=== PATIENT | male | born 1940 | race Caucasian/White ===

== ENCOUNTER 2018-04-25 11:27 | Emergency (ER) | payer OTHER ==
--- NOTE | 2018-04-25 12:01 | EDPHY ---
H & P Time Seen by Provider: 04/25/18 12:00 HPI/ROS: CHIEF COMPLAINT: Right hand numbness and weakness HISTORY OF PRESENT ILLNESS: Patient's symptoms started at 11:00 a.m.. 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 It lasted about 20 min. 1 away and then it came back although at the time of my evaluation the patient says his symptoms have completely resolved. Not associated with neck pain, or headache. He also had trouble using the button on the remote control. Associated with a little bit of dizziness and a feeling that he "just does not feel right." Not associated with double vision or speech difficulty or confusion or being off balance. REVIEW OF SYSTEMS: Eye: no change in vision ENT: History of having Lost hearing in his left ear, mostly resolved. Musculoskeletal: no back pain Skin: no rash Neuro: HPI, no headache Constitutional: no fever : no urinary symptoms A comprehensive 10 point review of systems is otherwise negative aside from elements mentioned in the history of present illness. PAST MEDICAL HISTORY: Includes inguinal and umbilical hernia repair. Negative for diabetes hypercholesterolemia or hypertension. Social history: Nonsmoker General Appearance: Alert and conversant, cooperative. Eyes: No scleral icterus. Pupils equal reactive extraocular motion intact. ENT, Mouth: Normal mucous membranes. Respiratory: Normal respiratory effort, breath sounds equal, lungs are clear to auscultation. Cardiovascular: Regular rate and rhythm. Normal right radial pulse. Gastrointestinal: Abdomen is soft and non tender. Neurological: Alert, face symmetric, normal motor and sensory in extremities. Specifically the patient has normal marketing mgr strength in the right hand, normal sensation in radial ulnar and median nerve distributions. Speech is fluent. Skin: Warm and dry, no rashes. Musculoskeletal: No peripheral edema. Psychiatric: Not agitated. Emergency Department course/MDM: Patient presents with symptoms consistent with TIA. Symptoms have completely resolved, he is in sinus rhythm. CT and CTA ordered. 1304: Some hand tingling symptoms have reoccurred, but no motor deficit or complaints of decreased strength at this time. Proceed with imaging. 1408: Results discussed with the patient, CT and CTA negative for abnormality or large vessel occlusion per Diandra. I recommended patient be admitted for TIA workup, he wants to be discharged as he feels normal now and has an event tonight that he feels like he needs to go to. He clearly has capacity to make decisions regarding his care. He is warned of the risks of leaving against my recommendation including but not limited to recurrent symptoms, stroke, disability, . He states that he understands these risks but still wants to leave and follow up as an outpatient. Warned to return immediately for recurrent symptoms. Smoking Status: Former smoker Constitutional: Initial Vital Signs Temperature (C) 36.6 C 04/25/18 11:32 Heart Rate 85 04/25/18 11:32 Respiratory Rate 16 04/25/18 11:32 Blood Pressure 168/94 H 04/25/18 11:32 O2 Sat (%) 94 04/25/18 11:32 O2 Delivery Mode Room Air Allergies/Adverse Reactions: No Allergies [NKDA] Allergy (Verified 04/25/18 11:32) Home Medications: Medication Instructions Recorded Multivitamin (*) 01/11/18 Medical Decision Making - Diagnostics EKG Interpretation: 12-lead EKG interpreted by me; official reading is in computer system. My interpretation is sinus rhythm with PVC and left axis. Imaging Results: Imaging Impressions Head CT 04/25/18 12:57 Impression: Negative. No acute intracranial hemorrhage or evidence of ischemia. Findings discussed with the emergency department physician, Leandro Vanegas MD on April 25, 2018 at 1:56 p.m. Head CTA 04/25/18 12:57 Impression: 1. Normal intracranial arterial circulation. No evidence of embolic disease or aneurysm. 2. Patent venous system. Findings discussed with the emergency department physician, Leandro Vanegas MD on April 25, 2018 at 2:03 p.m. Neck CTA 04/25/18 12:57 Impression: 1. Mild bilateral carotid plaque results in less than 20% narrowing bilaterally. No occlusion, dissection, or flow-limiting stenosis. 2. Widely patent vertebral arteries. Findings discussed with the emergency department physician, Leandro Vanegas MD on April 25, 2018 at 2:03 p.m. Measurement of carotid stenosis is based on the residual internal carotid diameter with [place] Symptomatic Carotid Endarterectomy Trial (NASCET) based stenosis levels. Imaging: Discussed imaging studies w/ scallop dredger Radiologist Differential Diagnosis: Differential considered including but not limited to intracranial mass, intracranial bleed, peripheral neuropathy, TIA, ischemic stroke, cervical radiculopathy. - Data Points Laboratory Results: Laboratory Results 04/25/18 11:50 04/25/18 11:50 04/25/18 04/25/18 04/25/18 12:21 11:50 11:50 WBC RBC Hgb POC Hgb 18.4 gm/dL H gm/dL (13.7-17.5) Hct POC Hct 54 % H % (40-51) MCV MCH MCHC RDW Plt Count MPV Neut % (Auto) Lymph % (Auto) Steele % (Auto) Eos % (Auto) Baso % (Auto) Nucleat RBC Rel Count Absolute Neuts (auto) Absolute Lymphs (auto) Absolute Monos (auto) Absolute Eos (auto) Absolute Basos (auto) Absolute Nucleated RBC Immature Gran % Immature Gran # PT 12.7 SEC SEC (12.0-15.0) INR 0.93 (0.83-1.16) POC Sodium 145 mEq/L mEq/L (135-145) Sodium 142 mEq/L mEq/L (135-145) POC Potassium 3.7 mEq/L mEq/L (3.3-5.0) Potassium 4.3 mEq/L mEq/L (3.3-5.0) POC Chloride 105 mEq/L mEq/L (97-110) Chloride 106 mEq/L mEq/L (97-110) Carbon Dioxide 26 mEq/l mEq/l (22-31) Anion Gap 10 mEq/L mEq/L (6-14) POC BUN 18 mg/dL mg/dL (7-23) BUN 18 mg/dL mg/dL (7-23) Creatinine 0.9 mg/dL mg/dL (0.7-1.3) POC Creatinine 0.8 mg/dL mg/dL (0.7-1.3) Estimated GFR > 60 Glucose 104 mg/dL H mg/dL (70-100) POC Glucose 106 mg/dL H mg/dL (70-100) Calcium 9.7 mg/dL mg/dL (8.5-10.4) 04/25/18 11:50 WBC 6.25 10^3/uL 10^3/uL (3.80-9.50) RBC 5.82 10^6/uL 10^6/uL (4.40-6.38) Hgb 18.2 g/dL H g/dL (13.7-17.5) POC Hgb Hct 52.2 % H % (40.0-51.0) POC Hct MCV 89.7 fL fL (81.5-99.8) MCH 31.3 pg pg (27.9-34.1) MCHC 34.9 g/dL g/dL (32.4-36.7) RDW 13.4 % % (11.5-15.2) Plt Count 211 10^3/uL 10^3/uL (150-400) MPV 11.0 fL fL (8.7-11.7) Neut % (Auto) 61.1 % % (39.3-74.2) Lymph % (Auto) 25.3 % % (15.0-45.0) Steele % (Auto) 9.6 % % (4.5-13.0) Eos % (Auto) 3.2 % % (0.6-7.6) Baso % (Auto) 0.6 % % (0.3-1.7) Nucleat RBC Rel Count 0.0 % % (0.0-0.2) Absolute Neuts (auto) 3.82 10^3/uL 10^3/uL (1.70-6.50) Absolute Lymphs (auto) 1.58 10^3/uL 10^3/uL (1.00-3.00) Absolute Monos (auto) 0.60 10^3/uL 10^3/uL (0.30-0.80) Absolute Eos (auto) 0.20 10^3/uL 10^3/uL (0.03-0.40) Absolute Basos (auto) 0.04 10^3/uL 10^3/uL (0.02-0.10) Absolute Nucleated RBC 0.00 10^3/uL 10^3/uL (0-0.01) Immature Gran % 0.2 % % (0.0-1.1) Immature Gran # 0.01 10^3/uL 10^3/uL (0.00-0.10) PT INR POC Sodium Sodium POC Potassium Potassium POC Chloride Chloride Carbon Dioxide Anion Gap POC BUN BUN Creatinine POC Creatinine Estimated GFR Glucose POC Glucose Calcium Medications Given: Discontinued Medications Aspirin (Aspirin) 324 mg PO EDNOW ONE Stop: 04/25/18 14:24 Last Admin: 04/25/18 14:35 Dose: 324 mg Point of Care Test Results: Chemistry 04/25/18 12:21 POC Sodium 145 mEq/L mEq/L (135-145) POC Potassium 3.7 mEq/L mEq/L (3.3-5.0) POC Chloride 105 mEq/L mEq/L (97-110) POC BUN 18 mg/dL mg/dL (7-23) POC Creatinine 0.8 mg/dL mg/dL (0.7-1.3) POC Glucose 106 mg/dL H mg/dL (70-100) ISTAT H&H 04/25/18 12:21 POC Hgb 18.4 gm/dL H gm/dL (13.7-17.5) POC Hct 54 % H % (40-51) Departure - Departure Disposition: Home, Routine, Self-Care Clinical Impression: TIA (transient ischemic attack) Condition: Good Instructions: Transient Ischemic Attack (ED) Additional Instructions: Please call your primary care doctor tomorrow morning for follow-up within the next 48 hr for additional testing for possibility of stroke. 1 oral aspirin 324 mg by mouth every day for the next week, then as recommended by your follow-up physician. Referrals: Reji Wade MD [Primary Care Provider] - As per Instructions Lyle Cisneros MD [Medical Doctor] - As per Instructions
[2018-04-25 12:26] LABS: PLATELET COUNT 211 10^3/uL (150-400)
[2018-04-25 12:34] LABS: INR 0.93 (0.83-1.16); PROTIME(PATIENT) 12.7 SEC (12.0-15.0)
--- NOTE | 2018-04-25 12:59 | CPEKG ---
Test Reason : OPEN Blood Pressure : / mmHG Vent. Rate : 073 BPM Atrial Rate : 072 BPM P-R Int : 176 ms QRS Dur : 101 ms QT Int : 396 ms P-R-T Axes : 011 -38 039 degrees QTc Int : 437 ms Sinus rhythm Ventricular premature complex Probable left atrial enlargement Left axis deviation Confirmed by Leandro Vanegas ([id number]) on 04/25/2018 12:59:11 PM Referred By: Confirmed By:Leandro Vanegas
[2018-04-25] MEDS ORDERED: IOPAMIDOL (ISOVUE 370) 100 ML BTL IV ONE (13:18)
[2018-04-25] MEDS ORDERED: ASPIRIN 81 MG CHEWABLE TAB PO ONE (14:23)
[2018-04-25 14:39] VITALS: BP 141/97
== END 2018-04-25 14:41 | disposition home or self-care (01) ==
DX: G45.9 Transient cerebral ischemic attack, unspecified (principal); Z87.891 Personal history of nicotine dependence
CPT/HCPCS: 70450; 70496; 70498; 93005; 99285; Q9967; 82435-PO; 82565-PO; 82947-PO; 84132-PO; 84295-PO; 84520-PO; 85014-PO

== ENCOUNTER 2018-07-01 09:36 | Day surgery (SDC) | payer OTHER ==
[2018-07-01] MEDS ORDERED: NS 500 ML IV ONE (09:37)
[2018-07-01] MEDS ORDERED: LIDOCAINE 1% 300 MG/30 ML SDV SC ONE (09:37)
[2018-07-01] MEDS ORDERED: MIDAZOLAM 2 MG/2 ML VIAL IVP ONE (09:37)
[2018-07-01] MEDS ORDERED: fentaNYL 100 MCG/2 ML INJ IVP ONE (09:37)
[2018-07-01] MEDS ORDERED: BENZOCAINE UNIT DOSE SPRAY HURRICAINE MM ONE (09:37)
== END 2018-07-01 10:44 | disposition home or self-care (01) ==
LOC: FCATH 09:36
PROVIDERS: ATTEND Internal Medicine Cardiovascular Disease
DX: R94.39 Abnormal result of other cardiovascular function study (principal); Q21.1 Atrial septal defect; R00.2 Palpitations; I49.3 Ventricular premature depolarization; I47.2 Ventricular tachycardia; I34.0 Nonrheumatic mitral (valve) insufficiency; Z87.891 Personal history of nicotine dependence; Z86.73 Personal history of transient ischemic attack (TIA), and cerebral infarction without residual deficits; Z82.49 Family history of ischemic heart disease and other diseases of the circulatory system; Z53.09 Procedure and treatment not carried out because of other contraindication

== ENCOUNTER 2018-07-08 09:53 | Day surgery (SDC) | payer OTHER ==
[2018-07-08] MEDS ORDERED: LIDOCAINE 1% 300 MG/30 ML SDV SC ONE (10:03)
[2018-07-08] MEDS ORDERED: NS 500 ML IV ONE (10:03)
[2018-07-08] MEDS ORDERED: BENZOCAINE UNIT DOSE SPRAY HURRICAINE MM ONE (10:03)
[2018-07-08] MEDS ORDERED: fentaNYL 100 MCG/2 ML INJ IVP ONE (10:03)
[2018-07-08] MEDS ORDERED: MIDAZOLAM 2 MG/2 ML VIAL IVP ONE (10:03)
--- NOTE | 2018-07-08 11:50 | PDPROPOC ---
Sedation Plan of Care Sedation Plan of Care: vital signs stable, mental status noted, patient educated of risks, benefits, alternatives, patient can tolerate sedation ASA Classification: ASA 3 Planned drugs: fentanyl, midazolam Mallampati Score: Class 2 Mallampati Reference Image: Patient passed 3-3-2 rule?: Yes
--- NOTE | 2018-07-08 11:51 | PDHPUP ---
History & Physical Update H&P update statement: This history and physical update is based on an assessment of the patient which was completed after admission or registration (within 24 hours), but prior to the surgery/procedure. H&P update: H&P reviewed & patient examined, no change in patient's condition since H&P completed
[2018-07-08] MEDS ORDERED: MIDAZOLAM 2 MG/2 ML VIAL ONE (11:59)
--- NOTE | 2018-07-12 18:35 | ECHO ---
[email or web address] [address] Main: [phone] Fax: Transesophageal Echocardiography Name: JULIOCESAR BARTLETT MR#: [id number] Study Date: 07/08/2018 Study Time: 11:52 AM Date of : 1940 Age: 78 year(s) Height: ( ) Weight: ( ) BSA: Gender: Male Examination: ELBA Indication: Eval interatrial septum Image Quality: Contrast: Requested by: Willie Bee Heart Rate: Rhythm: BP: / Procedure Staff Guest Relations Coordinator: Marino Nelson RDCS Reading Physician: Willie Bee MD Requesting Provider: ELBA Exam Details Conclusions: Normal size left ventricle. No LV hypertrophy. Normal global systolic LV function. No regional wall motion abnormality. Normal size right ventricle. Normal RV function. An agitated saline study was performed and was positive for intracardiac shunting. There is atrial septal bowing from right to left. Small secundum atrial septum defect.. The right atrium is normal in size. The mitral valve is normal in appearance. Mild mitral valve regurgitation is present. The aortic valve is tri-leaflet. Mild aortic valve regurgitation is present. The AI is eccentric.. The tricuspid valve appears normal. The pulmonic valve is normal in appearance and function. The aorta is normal. No pericardial effusion. A small ASD is present via agitated saline injection and Doppler flow interrogation. Measurements: Chambers Valvular Assessment AV/MV Valvular Assessment TV/PV Normal Normal Normal Name Value Range Name Value Range Name Value Range Patient: JULIOCESAR BARTLETT Study Date: 07/08/2018 Page 1 of 2 11:52 AM Additional Measurements: Findings: Left Ventricle: Normal size left ventricle. No LV hypertrophy. Normal global systolic LV function. No regional wall motion abnormality. Right Ventricle: Normal size right ventricle. Normal RV function. Left Atrium: An agitated saline study was performed and was positive for intracardiac shunting. There is atrial septal bowing from right to left. Small secundum atrial septum defect.. Right Atrium: The right atrium is normal in size. Mitral Valve: The mitral valve is normal in appearance. Mild mitral valve regurgitation is present. Aortic Valve: The aortic valve is tri-leaflet. Mild aortic valve regurgitation is present. The AI is eccentric.. Tricuspid Valve: The tricuspid valve appears normal. Pulmonic Valve: The pulmonic valve is normal in appearance and function. Aorta: The aorta is normal. Pericardium: No pericardial effusion. l1n (No Signature Object) Patient: JULIOCESAR BARTLETT Study Date: 07/08/2018 Page 2 of 2 11:52 AM [id number]
== END 2018-07-08 14:30 | disposition home or self-care (01) ==
LOC: FCATH 09:53
PROVIDERS: ATTEND Internal Medicine Cardiovascular Disease
DX: I08.0 Rheumatic disorders of both mitral and aortic valves (principal); I49.9 Cardiac arrhythmia, unspecified; R00.2 Palpitations
CPT/HCPCS: C1764; J2250; J3010